=== PATIENT | female | born 1930 | race Caucasian/White ===

== ENCOUNTER 2016-10-14 14:47 | Inpatient (IN) | payer OTHER ==
[~2016-10-14] VITALS: Ht 167.6 cm; Wt 78.5 kg
[2016-10-14 14:47] VITALS: BP 139/55
[~2016-10-14 14:47] MED LIST: ALBUTEROL2.5 MG/0.5 INH; ASPIR-LOW81 MG PO; BREO ELLIPTA 11 EACH IH; BROVANA15 MCG/2 M; COLACE100 MG PO; DELTASONE20 MG PO; DEPAKOTE 250MG250 M1; DEX4 GLUCOSE4 GM PO; DEXTROSE 5025 GM/SYR IV; DIOVAN 80 MG TA80 M1 PO; DUONEB 2.5-0.5 M3 ML INH; GLYCOLAX255 GM PO; GUIATUSS DM SY120 ML; HYDRALAZINE20 MG/M1 IV; KLOR-CON 1010 MEQ PO; LASIX 20 MG TAB20 MG PO; LEVAQUIN 500 M500 M2 PO; LIPITOR20 MG PO; LOPRESSOR25 PO; METOPROLOL SUCC50 MG PO; MIRALAX17 GM PO; MOBIC15 MG PO; MUCINEX TA600 MG/TA2 PO; MYLANTA SUSP PO; NORVASC5 MG PO; NOVOLOG100 UNIT/1 SUBQ; NYAMYC15 GM TOP; PREDNISONE 10 M10 MG PO; PREMPRO 0.625-1 EAC1 PO; PRILOSEC 20 MG20 MG PO; PROBIOTIC1 EAC1; PROMETHAZINE/C118 ML PO; PROVERA2.5 MG PO; SENNA8.6 MG PO; SINGULAIR 10 MG10 M1 PO; SODIUM CHLORIDE10 ML IV; SOLU-MEDRO125 MG/24 IV; SPIRIVA18 MCG INH; TEARS NATURALE1 EACH OPHTHALMIC; TYLENOL325 MG PO; VALSARTAN-HCTZ1 EAC1 PO; VENTOLIN HFA 1818 GM INH; VOLTAREN GEL 1100 G2 TOP; XARELTO10 MG PO; ZOFRAN2 MG/1 ML IV
[2016-10-14] MEDS ORDERED: APAP500 PO (15:21)
[2016-10-14] MEDS ORDERED: ASPIR 8181 MG PO (15:22)
[2016-10-14 15:24] LABS: HEMOGLOBIN 13.4 gm/dL (12.0-15.0); MCH 32.4 pg (26.0-34.0); MCHC 34.3 g/dL (28.0-37.0); MCV 94.4 fL (80.0-100.0); PLATELET COUNT 385 thou/uL (150-400); RBC 4.13 mil/uL (4.20-5.00); RDW 15.4 % (10.5-14.5); WBC 16.5 thou/uL (4.0-11.0)
[2016-10-14 15:25] LABS: CALCIUM 9.1 mg/dL (8.5-10.1); CREATININE 0.9 mg/dL (0.6-1.0); MANUAL DIFF YES; POTASSIUM 3.7 mmol/L (3.5-5.1)
[2016-10-14 15:32] LABS: ALBUMIN 3.2 g/dL (3.4-5.0); TOTAL BILIRUBIN 0.4 mg/dL (<0.1-1.0); TOTAL PROTEIN 6.9 g/dL (6.4-8.2)
[2016-10-14 15:38] LABS: PROTIME 9.9 Seconds (9.3-11.4)
[2016-10-14 15:43] LABS: APTT 22.2 Seconds (24.5-32.8)
[2016-10-14 15:48] LABS: ABSOLUTE NEUTROPHILS 10.9 thou/uL (1.4-8.2); TOTAL CELL COUNT 100
[2016-10-14 16:37] LABS: URINE BILIRUBIN NEGATIVE (Negative); URINE BLOOD TRACE (Negative); URINE COLOR YELLOW; URINE GLUCOSE-RANDOM* NEGATIVE (Negative); URINE KETONES NEGATIVE (Negative); URINE LEUKOCYTES-REFLEX TRACE (Negative); URINE PROTEIN (DIPSTICK) NEGATIVE (Negative); URINE UROBILINOGEN 0.2 E.U./dl (0.2-1.0)
[2016-10-14 17:14] VITALS: BP 140/60
[2016-10-14 17:31] VITALS: BP 140/60
[2016-10-14 17:41] LABS: HEMATOCRIT 36.9 % (37.0-47.0); HEMOGLOBIN 12.5 gm/dL (12.0-15.0)
[2016-10-14 18:00] VITALS: BP 163/70
[2016-10-14 20:15] VITALS: BP 169/60
[2016-10-14] MEDS ORDERED: DULERA 200 MCG/13 GM INH (20:33)
[2016-10-14 22:30] LABS: HEMATOCRIT 35.9 % (37.0-47.0); HEMOGLOBIN 12.1 gm/dL (12.0-15.0)
[2016-10-15 00:05] VITALS: BP 151/64
[2016-10-15 04:10] VITALS: BP 150/69
[2016-10-15 07:04] LABS: HEMATOCRIT 34.9 % (37.0-47.0)
[2016-10-15 08:10] VITALS: BP 154/60
[2016-10-15 16:06] VITALS: BP 132/55
[2016-10-15 17:39] VITALS: BP 132/55
[2016-10-15 18:39] VITALS: BP 132/55
== END 2016-10-15 17:50 | disposition home or self-care (01) | DRG 377 ==
LOC: ER 14:47 → EROBS 16:35 → 3N 16:35
PROVIDERS: Emergency Medicine; Hospitalist
DX: K92.2 Gastrointestinal hemorrhage, unspecified (principal); J96.20 Acute and chronic respiratory failure, unspecified whether with hypoxia or hypercapnia; I48.92 Unspecified atrial flutter; J44.9 Chronic obstructive pulmonary disease, unspecified; E78.5 Hyperlipidemia, unspecified; I73.9 Peripheral vascular disease, unspecified; I11.0 Hypertensive heart disease with heart failure; M32.9 Systemic lupus erythematosus, unspecified; D72.829 Elevated white blood cell count, unspecified; I25.10 Atherosclerotic heart disease of native coronary artery without angina pectoris; I48.91 Unspecified atrial fibrillation; F32.9 Major depressive disorder, single episode, unspecified; Z95.820 Peripheral vascular angioplasty status with implants and grafts; Z95.5 Presence of coronary angioplasty implant and graft; Z99.81 Dependence on supplemental oxygen; Z87.891 Personal history of nicotine dependence; Z87.01 Personal history of pneumonia (recurrent); Z90.81 Acquired absence of spleen; Z98.42 Cataract extraction status, left eye; Z98.41 Cataract extraction status, right eye; Z88.0 Allergy status to penicillin; Z88.2 Allergy status to sulfonamides; Z82.49 Family history of ischemic heart disease and other diseases of the circulatory system; Z80.3 Family history of malignant neoplasm of breast
CPT/HCPCS: 10096

== ENCOUNTER → 2017-04-15 | Outpatient (CLI) | payer OTHER ==
[~2017-04-15] MED LIST changes: +APAP500 PO; +ASPIR 8181 MG PO; +DULERA 200 MCG/13 GM INH
== END ==
LOC: RAD 13:13
DX: J44.9 Chronic obstructive pulmonary disease, unspecified (principal); J84.10 Pulmonary fibrosis, unspecified; I70.0 Atherosclerosis of aorta; J96.21 Acute and chronic respiratory failure with hypoxia; E87.1 Hypo-osmolality and hyponatremia; I48.92 Unspecified atrial flutter; I25.10 Atherosclerotic heart disease of native coronary artery without angina pectoris; I11.0 Hypertensive heart disease with heart failure; I50.32 Chronic diastolic (congestive) heart failure; I48.0 Paroxysmal atrial fibrillation; E78.5 Hyperlipidemia, unspecified; Z90.81 Acquired absence of spleen; Z87.891 Personal history of nicotine dependence; Z87.01 Personal history of pneumonia (recurrent)

== ENCOUNTER → 2017-04-29 | Outpatient (CLI) | payer OTHER ==
[2017-04-29 10:44] LABS: CREATININE 0.8 mg/dL (0.6-1.0)
== END ==
LOC: CAT 10:06 → EDSTATUS 15:41 → CAT 15:43
PROVIDERS: Internal Medicine Pulmonary Disease
DX: J84.10 Pulmonary fibrosis, unspecified (principal); R91.8 Other nonspecific abnormal finding of lung field; J43.8 Other emphysema